=== PATIENT | female | born 2005 | race Two or more races ===

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

== ENCOUNTER 2024-06-02 18:14 | Emergency (ER) | payer OTHER, MEDICAID ==
[~2024-06-02] VITALS: Ht 142.2 cm; Wt 69.7 kg
[2024-06-02 18:30] VITALS: BP 121/89; PULSE 101; RESP 16; O2SAT 95
--- NOTE | 2024-06-02 19:42 | ED.PDOC ---
Musculoskeletal HPI Comments 18 year old female with mother present, presents to the ED with a chief complaint of RT hand tremors onset today. Mother states the patient woke up today experiencing RT hand tremors, called PCP and was told to come to ED for CT scan. Mother states while in waiting room she noticed the patient began experiencing RT leg tremors as well. Mother states the patient is followed up by a Neurologist and General Assistant and [facility]. After discussing plan of care with mother she decided to take patient directly to [facility] [place]. PMHx of down syndrome. Denies injury, fall, headache, chest pain, shortness of breath, nausea, vomiting, dizziness. No other symptoms or modifying factors present at this time. Chief Complaint: Upper Extremity Time Seen by MD: 19:32 Reviewed Notes: Medications, Allergies Allergies: Coded Allergies: NO KNOWN ALLERGIES (Unverified , 06/02/24) Information Source: Relative (Mother) Mode of Arrival: Ambulatory Location: Right Extremity Location: Hand, Leg Timing: Hours Prehospital treatment: None Severity: Moderate Able to Move Extremity: Yes Pain: Moderate Onset of Symptoms: Spontaneous DVT Risk Factors: NONE Associated signs and symptoms: None Past Medical History Past Medical History (Other): down syndrome Surgical History (Other): heart surgery ART MANAGER History: No Pertinent ART MANAGER History Family History Family History: Reviewed,noncontributory to illness, No family hx of Cancer, No family hx of DM, No family hx of Heart em, No family hx of HTN, No family hx ofKidney em, No family hx of Liver em, No family hx of Lung em, No family hx of Stroke Social History Smoker: Non-Smoker Alcohol: Denies ETOH Use Drugs: Denies Drug Use Lives In: Home Constitutional: denies: chills, diaphoresis, fatigue, fever, malaise, sweats, weakness, others EENTM: denies: blurred vision, double vision, ear bleeding, ear discharge, ear drainage, ear pain, ear ringing, eye pain, eye redness, hearing loss, mouth pain, mouth swelling, nasal discharge, nose bleeding, nose congestion, nose pain, photophobia, tearing, throat pain, throat swelling, voice changes, others Respiratory: denies: cough, hemoptysis, orthopnea, SOB at rest, shortness of breath, SOB with excertion, stridor, wheezing, others Cardiovascular: denies: chest pain, dizzy spells, diaphoresis, Dyspnea on exertion, edema, irregular heart beat, left arm pain, lightheadedness, palpitations, PND, syncope, others Gastrointestinal: denies: abdomen distended, abdominal pain, blood streaked bowels, constipated, diarrhea, dysphagia, difficulty swallowing, hematemesis, melena, nausea, poor appetite, poor fluid intake, rectal bleeding, rectal pain, vomiting, others Genitourinary: denies: abnormal vagina bleeding, burning, dyspareunia, dysuria, flank pain, frequency, hematuria, incontinence, pain, , vagina discharge, urgency, others Neurological: reports: tremors (RT hand and RT leg); denies: dizziness, fainting, headache, left sided numbness, left sided weakness, numbness, paresthesia, pre-existing deficit, right sided numbness, right sided weakness, seizure, speech problems, tingling, weakness, others Musculoskeletal: reports: others (RT hand and RT leg shaking ); denies: back pain, gout, joint pain, joint swelling, muscle pain, muscle stiffness, neck pain Integumetry: denies: bruises, change in color, change in hair/nails, dryness, laceration, lesions, lumps, rash, wounds, others Allergic/Immunocompromised: denies: Difficulty Healing, Frequent Infections, Hives, Itching, others Hematologic/Lymphatic: denies: anemia, blood clots, easy bleeding, easy bruising, swollen glands, others Endocrine: denies: excessive hunger, excessive sweating, excessive thirst, excessive urination, flushing, intolerance to cold, intolerance to heat, unexplained weight gain, unexplained weight loss, others Psychiatric: denies: anxiety, bipolar disorder, depression, hopeless, panic disorder, schizophrenia, sleepless, suicidal, others All Other Systems: Reviewed and Negative Physical Exam General Appearance: No Apparent Distress, Normal HEENT: Normal ENT Inspection, Pharynx Normal, TMs Normal Neck: Full Range of Motion, Non-Tender, Normal, Normal Inspection Respiratory: Chest Non-Tender, Lungs Clear, No Accessory Muscle Use, No Respiratory Distress, Normal Breath Sounds Cardiovascular: No Edema, No JVD, No Murmur, No Gallop, Normal Peripheral Pulses, Regular Rate/Rhythm Breast Exam: Deferred Gastrointestinal: No Organomegaly, Non Tender, No Pulsatile Mass, Normal Bowel Sounds, Soft Genitalia: Deferred Pelvic: Deferred Rectal: Deferred Extremities: No calf tenderness, Normal capillary refill, Normal inspection, Normal range of motion, Non-tender, No pedal edema Musculoskeletal : Apperance: Normal Neurologic: Alert, fire safety director II-XII nml as Tested, No Motor Deficits, Normal Affect, Normal Mood, No Sensory Deficits Cerebellar Function: Normal Reflexes: Normal Skin: Dry, Normal Color, Warm Lymphatic: No Adenopathy Was a procedure done? Was a procedure done?: No Differential Diagnosis EXT Differential Diagnosis: Sprain, Arthritis X-Ray, Labs, Meds, VS Vital Signs Date Time Temp Pulse Resp B/P (MAP) Pulse Ox O2 Delivery O2 Flow Rate FiO2 06/02/24 18:30 98.3 101 16 121/89 (100) 95 Time of 1ST Reevaluation: 20:02 Reevaluation 1ST: Unchanged Patient Education/Counseling: Diagnosis, Treatment, Prognosis Family Education/Counseling: Diagnosis, Treatment, Prognosis Departure 1 Departure Time of Disposition: 20:27 (Patient with right hand tremors that began today. Patient has Down syndrome and patient has follow up with [facility]. Mom decided she will take patient directly to [facility] for further workup.) Impression: Primary Impression: Tremor of right hand Disposition: 07 LEFT AWOL/ELOPED Condition: Serious Critical Care Note Critical Care Time?: No Stability Stability form required: No I personally scribed for KIMBERLEY DOCKEYR MD ([email or web address]) on 06/02/24 at 19:42. Electronically submitted by Nancy Woods ([email or web address]). KIMBERLEY DOCKERY MD Jun 02, 2024 19:42
== END 2024-06-02 20:18 | disposition left against medical advice (07) ==
LOC: ER 18:14
DX: R25.1 Tremor, unspecified (principal); Q90.9 Down syndrome, unspecified; M79.641 Pain in right hand; Z98.890 Other specified postprocedural states